=== PATIENT | female | born 1945 | race Caucasian/White ===

== ENCOUNTER → 2017-11-07 10:31 | Outpatient (CLI) | payer OTHER, SELFPAY ==
[2017-11-07 10:49] LABS: Bacteria Urine None Seen; RBC Urine None Seen (0-5/HPF); WBC Urine None Seen (0-5/HPF)
[2017-11-07 11:33] LABS: Add Manual Diff / Slide Review NO; Basophils Percent Auto 0.7 % (0-2); Eosinophils Percent Auto 1.9 % (2-4); Hematocrit 40.7 % (36-46); Hemoglobin 14.4 g/dL (12.0-16.0); Lymphocytes Percent Auto 34.4 % (25-40); Mean Corpuscular HGB Conc 35.4 % (30-36); Mean Corpuscular Hemoglobin 34.1 PG (26-34); Mean Corpuscular Volume 96.3 fL (80-100); Monocytes Percent Auto 9.4 % (3-14); Neutrophils Absolute Auto 3400 /uL (3000-5900); Neutrophils Percent Auto 53.6 % (50-75); Platelet Count 248 X10^3/uL (150-400); Red Blood Cell Count 4.22 X10^6/uL (4.0-5.2); Red Cell Distribution Width 12.5 % (11.6-14.8); White Blood Cell Count 6.3 X10^3/uL (4.5-11.0)
[2017-11-07 11:37] LABS: Appearance Urine UA CLEAR; Bilirubin Urine UA NEGATIVE (NEGATIVE); Color Urine UA YELLOW; Glucose Urine UA NEGATIVE (Normal); Ketones Urine UA NEGATIVE (NEGATIVE); Leukocyte Esterase Urine UA NEGATIVE (NEGATIVE); Nitrite Urine UA Negative (Negative); Occult Blood Urine UA NEGATIVE (Negative); Protein Urine UA NEGATIVE (Negative); Specific Gravity Urine UA 1.015 (1.000-1.035); Urobilinogen Urine UA 0.2 E.U./dL (0.2); pH Urine UA 6.5 (4.5-8.0)
[2017-11-07 11:52] LABS: Hemoglobin A1C% w Est Avg Glu 6.2 % (4.0-6.0)
[2017-11-07 12:02] LABS: Culture Indicated Urine Cult Not Indicated; Urine Comments Microscopic Normal
[2017-11-07 12:09] LABS: BUN Creatinine Ratio 21.3 (6-22); Blood Urea Nitrogen 17 mg/dL (7-17); Calcium 9.3 mg/dL (8.4-10.2); Carbon Dioxide 33 mmol/L (22-32); Chloride 97 mmol/L (98-107); Estimated Glomerular Filt Rate > 60.0 mL/min (>60); Glucose 108 mg/dL (80-110); HEMOLYSIS < 15 (0-50); Potassium 3.2 mmol/L (3.4-5.1); Sodium 141 mmol/L (137-145)
[2017-11-07 12:14] LABS: Transferrin 273 mg/dL (206-381)
== END ==
PROVIDERS: PCP Family Medicine; Visit Provider Orthopaedic Surgery
DX: Z01.818 Encounter for other preprocedural examination (principal); M25.561 Pain in right knee; D64.9 Anemia, unspecified; R73.9 Hyperglycemia, unspecified
CPT/HCPCS: 36415; 80048; 81001; 83036; 84466; 85025; 93005

== ENCOUNTER 2017-11-27 08:08 | Inpatient (IN) | payer OTHER, SELFPAY ==
[2017-11-13 09:44] VITALS: BMI 31.9
[2017-11-27] VITALS (13 sets, daily range): BP systolic 118–179; BP diastolic 58–106; PULSE 74–92; RESP 10–24; TEMP 36.4–37.2; O2SAT 93–97; BMI 31.2
[2017-11-27] MEDS: LACTATED RINGERS 1,000 ML 42 ML IV (09:00)
--- NOTE | 2017-11-27 09:02 | DI.RAD.S_ITS ---
PROCEDURE: XR KNEE RT 1TO2V INDICATIONS: post op TECHNIQUE: 2 view(s) of the knee acquired. COMPARISON: None. FINDINGS: Bones: Patient is status post knee joint arthroplasty. Hardware components are in expected positions. Visualized bony structures are intact. Soft tissues: Overlying postoperative changes are noted. IMPRESSION: Normal alignment after right total knee arthroplasty. Dictated by: Aris Vera M.D. on 11/27/2017 at 11:59 Approved by: Aris Vera M.D. on 11/27/2017 at 11:59
[2017-11-27] MEDS: ACETAMINOPHEN 325 MG TABLET 975 MG PO (09:08)
[2017-11-27] MEDS: CELECOXIB 200 MG CAPSULE PO (09:08)
[2017-11-27] MEDS: PREGABALIN 75 MG CAPSULE PO (09:08)
--- NOTE | 2017-11-27 09:08 | PM.PREOP ---
Pre-operative Note Interval Note Pre-op Check: Yes History & Physical Reviewed by Physician and Yes Exam Performed Changes: No
[2017-11-27] MEDS: MIDAZOLAM 2 MG/2 ML VIAL IV (09:21)
[2017-11-27] MEDS: CEFAZOLIN 2 GM/100 ML FROZ.PIGGY IV (09:40)
[2017-11-27] MEDS: TRANEXAMIC ACID 1,000 MG VIAL 1000 MG INJ ×3 (10:01→11:03)
[2017-11-27] MEDS: BUPIVACAINE 0.25% W/ EPI VIAL 50 ML INJ (10:12)
[2017-11-27] MEDS: MORPHINE 4 MG/ML INJ INJ (10:12)
[2017-11-27] MEDS: BUPIVACAINE LIPOSOME 266 MG/20 ML VIAL INJ (10:14)
--- NOTE | 2017-11-27 10:22 | SUR.OPER ---
Supine on padded OR bed. Pillow under head, arms secured on padded armboards <90 degree abduction. Safety belt across torso. Non-operative leg secured with tape over blanket over lower leg. Operative leg secured in DeMayo/Aakash positioner. Foam padded brace at thigh of operative leg.
--- NOTE | 2017-11-27 11:27 | PM.OP.1 ---
Operative Date/Time/Diagnoses Date of procedure: 11/27/17 Time of procedure: 11:15 Pre-op diagnosis: 1. Right knee osteoarthritis 2. Right knee synovial osteochondromatosis Post-op diagnosis: same Procedure & Clinicians Procedure: Right total knee replacement with removal of multiple loose bodies Same procedure as scheduled: Yes Indications: The patient has had progressively worsening right knee pain with radiographic changes consistent with arthritis and synovial osteochondromatosis. Non-operative management has failed and the patient has requested total knee replacement. The risks, benefits and alternatives to surgery were discussed with the patient prior to proceeding. Risks discussed included, but were not limited to, failure to relieve pain, stiffness, infection, nerve damage, deep venous thrombosis, pulmonary embolism, stroke, coma, heart attack, permanent paralysis and , as well as the potential need for eventual revision of the prosthetic. Surgeon: Jared Alejo Truck Sales Representative: Adwoa Gomez Click Yes if Unassisted: No Anesthesia Type: Spinal, Sedation and Local Operative Notes Findings: Significant predominantly lateral compartment osteoarthritis and multiple loose bodies. Closure Type: primary Specimen(s): none sent Implants & Drains: Implants used in this procedure were manufactured by the [employer] and included the BCS II Journey total knee replacement with a size 5 right Oxinium femoral component (due to the patient having a nickel allergy), size 4 right non porous tibial base plate, 10 mm cross-linked polyethylene BCS II insert, and a 35 mm x 7.5 mm round Mamta II patella. Applied: implant(s) Estimated Blood Loss (mL): 50 Blood products transfused: none Tourniquet time (min): 51 Procedure in detail: The patient was seen in the pre-operative area, where the patient identified the right knee as the operative site and this was marked with my initials. The patient received pre-operative antibiotics, and was taken to the operating room and placed on the operative table in the supine position. After satisfactory anesthesia, a time signal wirer out was performed. The right leg was encircled with a tourniquet about the proximal thigh, and the leg was prepared from the toes to the tourniquet with ChloroPrep in the usual fashion and draped through sterile drapes. The leg was elevated and exsanguinated with Eschmark bandage and the tourniquet inflated to 250 mmHg pressure. The knee was approached through an approximately 18 cm incision centered over the patella and carried into the knee through a medial parapatellar arthrotomy. The anterior osteophytes and soft tissues were removed. Multiple loose bodies were encountered removing the anterior soft tissues. These were removed. Additional loose bodies were intermittently encountered throughout the case and were removed each time. The rotational landmarks of [place]'s line and the transepicondylar axis were marked on the femur with electrocautery, and intramedullary guide holes for the femur and tibia were created. The distal femoral cut was made in 6 degrees of valgus using the intramedullary guide at the primary cut setting. The proximal tibial cut was then made using the intramedullary guide, taking 9 mm of bone off the less involved side. The extension gap was checked and the rotation of the femoral component confirmed with the gap balancing system. The anterior, posterior and chamfer cuts were then made. The posterior osteophytes and soft tissues were then removed. The posterior capsule was injected with part of a mixture of 50 ml 0.25% Marcaine mixed with 20 ml Exparel and 4 mg of morphine for post-operative pain control. The remainder of this mixture was injected into the capsule and subcutaneous tissues during cement curing. The tibia was prepared with the rotation set by an extra medullary guide. Trial tibial and femoral components were then placed and the intercondylar notch cut through the femoral trial. Range of motion was 0-135 degrees, with good stability throughout the range. The patella was then cut to accommodate the patellar prosthetic. There was no need for a lateral release. The trials were then removed, and the femoral hole plugged with a bone plug. The bone was prepared with pulsatile lavage, and dried with a sponge. Cement was applied and the final prosthetics placed. Excess cement was removed during and after cement curing. After confirming there was no extruded cement posteriorly, the final tibial insert was placed. The knee was copiously irrigated and the tourniquet deflated. Hemostasis was obtained. The capsule was closed with interrupted # 2 polyester suture. The subcutaneous layer was closed with 3-0 Vicryl, and the skin with a running 3-0 V-Lock suture and SteriStrips. An Aquacel Ag dressing was applied and the patient was taken to recovery having tolerated the procedure well. Complications: none Condition: stable Disposition: PACU Plan for aftercare: The patient will be maintained on a standard total knee replacement protocol with weight bearing as tolerated. The patient will receive aspirin and sequential compression devices for DVT prophylaxis. The patient will be discharged home when safe for the home environment. She very much wishes to go home today. We will evaluate her later this afternoon and see if she has made criteria for discharge.
--- NOTE | 2017-11-27 11:32 | P.OP_ITS ---
Operative Date/Time/Diagnoses Date of procedure: 11/27/17 Time of procedure: 11:15 Pre-op diagnosis: 1. Right knee osteoarthritis 2. Right knee synovial osteochondromatosis Post-op diagnosis: same Procedure & Clinicians Procedure: Right total knee replacement with removal of multiple loose bodies Same procedure as scheduled: Yes Indications: The patient has had progressively worsening right knee pain with radiographic changes consistent with arthritis and synovial osteochondromatosis. Non-operative management has failed and the patient has requested total knee replacement. The risks, benefits and alternatives to surgery were discussed with the patient prior to proceeding. Risks discussed included, but were not limited to, failure to relieve pain, stiffness, infection , nerve damage, deep venous thrombosis, pulmonary embolism, stroke, coma, heart attack, permanent paralysis and , as well as the potential need for eventual revision of the prosthetic. Surgeon: Jared Alejo Manager Procurement: Adwoa Gomez Click Yes if Unassisted: No Anesthesia Type: Spinal, Sedation and Local Operative Notes Findings: Significant predominantly lateral compartment osteoarthritis and multiple loose bodies. Closure Type: primary Specimen(s): none sent Implants & Drains: Implants used in this procedure were manufactured by the [employer] and included the BCS II Journey total knee replacement with a size 5 right Oxinium femoral component (due to the patient having a nickel allergy), size 4 right non porous tibial base plate, 10 mm cross -linked polyethylene BCS II insert, and a 35 mm x 7.5 mm round Mamta II patella. Applied: implant(s) Estimated Blood Loss (mL): 50 Blood products transfused: none Tourniquet time (min): 51 Procedure in detail: The patient was seen in the pre-operative area, where the patient identified the right knee as the operative site and this was marked with my initials. The patient received pre-operative antibiotics, and was taken to the operating room and placed on the operative table in the supine position. After satisfactory anesthesia, a multimedia instructional designer out was performed. The right leg was encircled with a tourniquet about the proximal thigh, and the leg was prepared from the toes to the tourniquet with ChloroPrep in the usual fashion and draped through sterile drapes. The leg was elevated and exsanguinated with Eschmark bandage and the tourniquet inflated to 250 mmHg pressure. The knee was approached through an approximately 18 cm incision centered over the patella and carried into the knee through a medial parapatellar arthrotomy. The anterior osteophytes and soft tissues were removed. Multiple loose bodies were encountered removing the anterior soft tissues. These were removed. Additional loose bodies were intermittently encountered throughout the case and were removed each time. The rotational landmarks of [place]'s line and the transepicondylar axis were marked on the femur with electrocautery, and intramedullary guide holes for the femur and tibia were created. The distal femoral cut was made in 6 degrees of valgus using the intramedullary guide at the primary cut setting. The proximal tibial cut was then made using the intramedullary guide, taking 9 mm of bone off the less involved side. The extension gap was checked and the rotation of the femoral component confirmed with the gap balancing system. The anterior, posterior and chamfer cuts were then made. The posterior osteophytes and soft tissues were then removed. The posterior capsule was injected with part of a mixture of 50 ml 0.25% Marcaine mixed with 20 ml Exparel and 4 mg of morphine for post-operative pain control. The remainder of this mixture was injected into the capsule and subcutaneous tissues during cement curing. The tibia was prepared with the rotation set by an extra medullary guide. Trial tibial and femoral components were then placed and the intercondylar notch cut through the femoral trial. Range of motion was 0-135 degrees, with good stability throughout the range. The patella was then cut to accommodate the patellar prosthetic. There was no need for a lateral release. The trials were then removed, and the femoral hole plugged with a bone plug. The bone was prepared with pulsatile lavage, and dried with a sponge. Cement was applied and the final prosthetics placed. Excess cement was removed during and after cement curing. After confirming there was no extruded cement posteriorly, the final tibial insert was placed. The knee was copiously irrigated and the tourniquet deflated. Hemostasis was obtained. The capsule was closed with interrupted # 2 polyester suture. The subcutaneous layer was closed with 3-0 Vicryl, and the skin with a running 3-0 V-Lock suture and SteriStrips. An Aquacel Ag dressing was applied and the patient was taken to recovery having tolerated the procedure well. Complications: none Condition: stable Disposition: PACU Plan for aftercare: The patient will be maintained on a standard total knee replacement protocol with weight bearing as tolerated. The patient will receive aspirin and sequential compression devices for DVT prophylaxis. The patient will be discharged home when safe for the home environment. She very much wishes to go home today. We will evaluate her later this afternoon and see if she has made criteria for discharge.
--- NOTE | 2017-11-27 11:46 | SUR.PHASEI ---
care assumed report recieved
[2017-11-27] MEDS: OXYCODONE IR 5 MG TABLET PO ×2 (12:47→16:29)
[2017-11-27] MEDS: LACTATED RINGERS 1,000 ML 125 ML IV (14:36)
--- NOTE | 2017-11-27 16:00 | PT.IIE ---
Current Diagnoses Bilateral primary osteoarthritis of knee (11/27/17) Loose body in knee, right knee (11/27/17) Surgery Performed Operation Date: 11/27/17 10:15 Actual Procedures p Total Knee Arthroplasty(Right) - Jared Alejo MD Surgical History (Last Updated 11/13/17 @ 10:18 by Jacqui Kirkland, RN) History of arthroscopy of both knees (Acute) History of bunionectomy of left great toe (Acute) Hx of tubal ligation (Acute) Status post bilateral cataract extraction (Acute) Medical History (Last Updated 11/13/17 @ 10:19 by Jacqui Kirkland RN) Arthritis (Acute) Easy bruisability (Acute) Encounter for colonoscopy due to history of colonic polyp (Acute) GERD (gastroesophageal reflux disease) (Acute) HTN (hypertension) (Acute) Hyperlipidemia (Acute) Hypokalemia (Acute) Hypothyroidism (Acute) Kidney stones (Acute) Osteoarthritis (Acute) Tarsal tunnel syndrome of both lower extremities (Acute) Physical Therapy Inpatient Evaluation/Re-Eval M1 PT/OT-IP Prior Functional Status Start: 11/27/17 15:52 Freq: NEEDED Status: Active Protocol: Document 11/27/17 15:53 RS (Rec: 11/27/17 16:00 RS [email or web address]) Medical Review Prior Functional Status Medical History Reviewed Yes Diet/Fluid Consistency Regular Communication no known deficits Mobility and Gait ind Activities of Daily Living and IADL's ind Prior Functional Level (Other details) no falls, drives Social History Household Members spouse Living Arrangements Mobile home Number of Floors (Floors) One Floor Number of Stairs To Enter/Railing? 1STE Home Environment High Toilet Home Equipment Front Wheel Walker Shower Seat without Backrest Employment Status Retired Additional Social History Comment and sister can provide 24/7 assist M2 PT-IP Current Condition Start: 11/27/17 15:52 Freq: NEEDED Status: Active Protocol: Document 11/27/17 15:53 RS (Rec: 11/27/17 16:00 RS [email or web address]) Physical Therapy Current Condition Current Condition Evaluation Date 11/27/17 Treatment Diagnosis R TKA - impaired mobility Onset Date 11/27/17 Weight Bearing Status Weight Bearing Status Weight Bear as Tolerated M3 PT-IP Subjective Start: 11/27/17 15:52 Freq: NEEDED Status: Active Protocol: Document 11/27/17 15:53 RS (Rec: 11/27/17 16:00 RS [email or web address]) Subjective Physical Therapy Visit Type Type Initial Evaluation Visit Start Time 14:40 Visit Stop Time 15:40 Total Visit Minutes 60 Physical Therapy Visit Comments Patient Comments Pt wants to go home today, feels ready for it. Patient Goals go home Therapy Pain Assessment Pain When Pain Assessed At Rest Pain Present Pain Present Denied Pain M4 PT-IP Mobility and Gait Start: 11/27/17 15:52 Freq: NEEDED Status: Active Protocol: Document 11/27/17 15:53 RS (Rec: 11/27/17 16:00 RS [email or web address]) PT-Bed Mobility Assessment Supine to Sit Supine to Sit Standby Assistance Scooting Scooting to Edge of Bed Standby Assistance PT-Transfer Assessment Sit to and From Stand Sit to and from Stand Standby Assistance Equipment Transfer Assistive Device Gait Belt Front Wheeled Walker Transfers Transfer Destination Chair Toilet Transfer Technique walked Transfer Ability Level of Assist Standby Assistance Gait Assessment Gait Gait Assistance Required: Standby Assistance Distance (Feet) 150 Assistive Devices Assistive Device Gait Belt Front Wheeled Walker Gait Deviations General Gait Pattern Antalgic PT-Balance Assessment Sitting Balance and Reactions Static Sitting Balance Ability Normal Dynamic Sitting Balance Ability Normal Standing Balance and Reactions Static Standing Balance Ability Normal Dynamic Standing Balance Ability Good Device Used FWW M5 PT-IP Objective Assessments Start: 11/27/17 15:52 Freq: NEEDED Status: Active Protocol: Document 11/27/17 15:53 RS (Rec: 11/27/17 16:00 RS [email or web address]) Orientation Orientation/Cognition Level of Alertness Alert Orientation Name Age Birthday Month Date Year Day of Week Place Situation Language Function Ability No Deficits Noted Safety Awareness Understands Safety Issues Memory Description No Deficits Noted Gross Range of Motion Lower Extremity ROM Assessment Right Impaired Strength Upper Extremity Strength Assessment Within Functional Limits Lower Extremity Strength Assessment Right Impaired Sensation Assessment Sensation Gross Sensation WNL Light Touch Intact M6 PT-IP Treatment Start: 11/27/17 15:52 Freq: NEEDED Status: Active Protocol: Document 11/27/17 15:53 RS (Rec: 11/27/17 16:00 RS [email or web address]) Physical Therapy Treatment Exercises Exercises Ankle Pumps Quad Sets Heel Slides Straight Leg Raises Short Arc Quads Passive Knee Extension Hang Seated Knee Flexion/Extension Education Education Provided Precautions Weight Bearing Status Post-Op Packet Safety M7 PT-IP Assessment and Plan Start: 11/27/17 15:52 Freq: NEEDED Status: Active Protocol: Document 11/27/17 15:53 RS (Rec: 11/27/17 16:00 RS [email or web address]) PT Summary Assessment and Plan Potential Rehabilitation Potential Excellent Status of Condition at Evaluation Stable Summary Impairments Pain ROM Strength Progress Towards Goals Safe For Discharge Assessment Summary Pt is POD#0 R TKA on velasquez path. Pt presents with ROM/ strength deficits and pain as expected after this surgery. Despite this pt is functioning at a SBA<>mod ind level. Pt wants to go home today instead of waiting until tomorrow. Pt is safe to discharge home today, sister has participated in caregiver training, all questions have been answered. Pt will benefit from OPPT once cleared by MD. Goals Bed Mobility Goal Standby Assistance Transfer Goal Standby Assistance Gait Goal Standby Assistance Frequency of Treatment Frequency Of Treatment Discharge Recommendations To Nursing Amount of Assist Needed Standby Assistance Discharge Recommendations PT Discharge Recommendations Home with Assistance Outpatient PT
--- NOTE | 2017-11-27 16:43 | PC.NURSE ---
[place] shift note: Patient awake and alert, up out of bed to chair with PT. Ambulated in room with steady gait. CMS intact to RLE. VSS and afebrile. Tolerating PO intake. Pain controlled with PO medication adequately. IV discontinued. Discharge instructions given to patient, verbalized understanding of instructions. Discussed importance of F/U with PMD. Discharge via private vehicle with Sister.
== END 2017-11-27 17:21 | disposition home or self-care (01) | DRG 470 ==
PROVIDERS: Admitting Provider Orthopaedic Surgery; PCP Family Medicine; Visit Provider Orthopaedic Surgery
PROC: 0SRC0JZ Replacement of Right Knee Joint with Synthetic Substitute, Open Approach (ICD-10-PCS; CPT 27447; principal; 2017-11-27 10:15)
DX: M17.11 Unilateral primary osteoarthritis, right knee (principal); E07.9 Disorder of thyroid, unspecified; I10 Essential (primary) hypertension; E78.5 Hyperlipidemia, unspecified; K21.9 Gastro-esophageal reflux disease without esophagitis; F32.9 Major depressive disorder, single episode, unspecified; Z87.891 Personal history of nicotine dependence; M23.41 Loose body in knee, right knee; D48.0 Neoplasm of uncertain behavior of bone and articular cartilage
CPT/HCPCS: 73560; 97110; 97116; 97161; 97530; C1776; C9290; J0690; J2250; J2270; J2704; J3010